=== PATIENT | male | born 1950 | race Caucasian/White ===

== ENCOUNTER 2016-07-17 08:33 | Outpatient (CLI) | payer MEDICARE, OTHER | END 2016-07-17 08:34 | disposition home or self-care (01) | DX: D64.9 Anemia, unspecified (principal); E11.9 Type 2 diabetes mellitus without complications; Z79.899 Other long term (current) drug therapy ==

== ENCOUNTER 2017-01-03 08:30 | Outpatient (CLI) | payer MEDICARE ==
[2017-01-03 14:23] LABS: BASOPHILS # (AUTO) 0.1 10^3/uL (0.0-0.1); BASOPHILS % (AUTO) 0.8 %; EOSINOPHILS # (AUTO) 1.1 10^3/uL (0.0-0.7); EOSINOPHILS % (AUTO) 9.3 %; HCT - HEMATOCRIT 34.2 % (42.0-52.0); HGB - HEMOGLOBIN 11.1 g/dL (14.0-18.0); IMMATURE RETIC FRACTION 0.56; LYMPHOCYTES # (AUTO) 3.1 10^3/uL (1.5-3.5); LYMPHOCYTES % (AUTO) 26.9 %; MEAN CORPUSCULAR HEMOGLOBIN 29.7 pg (27.0-31.0); MEAN CORPUSCULAR HGB CONC 32.5 g/dL (32.0-36.0); MEAN CORPUSCULAR VOLUME 91.3 fL (80.0-94.0); MEAN PLATELET VOLUME 8.6 fL (7.4-11.4); MONOCYTES # (AUTO) 0.9 10^3/uL (0.0-1.0); MONOCYTES % (AUTO) 7.6 %; NEUTROPHILS # (AUTO) 6.4 10^3/uL (1.5-6.6); NEUTROPHILS % (AUTO) 55.4 %; RED BLOOD COUNT 3.75 10^6/uL (4.70-6.10); RED CELL DISTRIBUTION WIDTH 17.3 % (12.0-15.0); UNCORRECTED WHITE BLOOD COUNT 11.7 x10^3/uL; WHITE BLOOD COUNT 11.7 x10^3/uL (4.8-10.8)
[2017-01-03 14:38] LABS: ALBUMIN/GLOBULIN RATIO 0.9 (1.0-2.2); BILIRUBIN,TOTAL 0.4 mg/dL (0.2-1.0); BUN - BLOOD UREA NITROGEN 36 mg/dL (6-20); CALCIUM 9.6 mg/dL (8.5-10.3); CARBON DIOXIDE - CO2 29 mmol/L (21-32); CHLORIDE 102 mmol/L (101-111); CHOL/HDL RATIO 3.6 (<5.0); CHOLESTEROL 105 mg/dL; GFR - MDRD 75 (>89); GLUCOSE 127 mg/dL (70-100); HDL CHOLESTEROL 29 mg/dL; LDL/HDL RATIO 0.7 (<3.6); POTASSIUM 4.4 mmol/L (3.5-5.0); SODIUM 140 mmol/L (135-145); TOTAL PROTEIN 7.6 g/dL (6.7-8.2); TRIGLYCERIDES 275 mg/dL; VLDL CHOLESTEROL 55 mg/dL
[2017-01-03 14:49] LABS: HEMOGLOBIN A1C 1.02 g/dL
[2017-01-03 14:57] LABS: FERRITIN 52.1 ng/mL (23.9-336.2)
[2017-01-03 15:09] LABS: THYROID STIMULATING HORMONE 2.39 uIU/mL (0.34-5.60)
== END 2017-01-03 08:31 | disposition home or self-care (01) ==
LOC: LAB.R 08:30
PROVIDERS: ATTEND Internal Medicine
DX: D64.9 Anemia, unspecified (principal); I25.10 Atherosclerotic heart disease of native coronary artery without angina pectoris; E10.9 Type 1 diabetes mellitus without complications; Z79.899 Other long term (current) drug therapy
CPT/HCPCS: 36415; 80053; 80061; 82607; 82728; 83010; 83036; 84443; 85025; 85044; 86880

== ENCOUNTER 2018-04-30 11:17 | Outpatient (CLI) | payer MEDICARE ==
[2018-04-30 12:15] LABS: BASOPHILS # (AUTO) 0.1 10^3/uL (0.0-0.1); BASOPHILS % (AUTO) 0.8 %; EOSINOPHILS # (AUTO) 0.3 10^3/uL (0.0-0.7); EOSINOPHILS % (AUTO) 2.7 %; LYMPHOCYTES % (AUTO) 17.7 %; MEAN CORPUSCULAR HEMOGLOBIN 30.5 pg (27.0-31.0); MEAN CORPUSCULAR HGB CONC 32.8 g/dL (32.0-36.0); MEAN CORPUSCULAR VOLUME 92.9 fL (80.0-94.0); MONOCYTES # (AUTO) 0.9 10^3/uL (0.0-1.0); MONOCYTES % (AUTO) 7.6 %; NEUTROPHILS # (AUTO) 8.2 10^3/uL (1.5-6.6); NEUTROPHILS % (AUTO) 71.2 %; PLT - PLATELET COUNT 252 10^3/uL (130-450); RED BLOOD COUNT 3.62 10^6/uL (4.70-6.10); RED CELL DISTRIBUTION WIDTH 18.2 % (12.0-15.0); WHITE BLOOD COUNT 11.5 x10^3/uL (4.8-10.8)
[2018-04-30 12:21] LABS: ALBUMIN 3.4 g/dL (3.2-5.5); ALBUMIN/GLOBULIN RATIO 0.9 (1.0-2.2); BILIRUBIN,TOTAL 0.6 mg/dL (0.2-1.0); CALCIUM 9.2 mg/dL (8.5-10.3); CREATININE 0.9 mg/dL (0.6-1.2)
[2018-04-30 12:33] LABS: HB2 TOTAL 11.5 g/dL; HEMOGLOBIN A1C 0.62 g/dL; HEMOGLOBIN A1C % 7.1 % (4.6-6.2)
--- NOTE | 2018-04-30 13:07 | XRAY Report ---
Reason: CHF Procedure Date: 04/30/2018 Accession Number: [id number] / [id number] Procedure: XR - Chest 2 View X-Ray CPT Code: 46249 FULL RESULT: EXAM: CHEST RADIOGRAPHY EXAM DATE: 04/30/2018 12:38 PM. CLINICAL HISTORY: The patient also states history of hemoptysis. COMPARISON: 08/07/2014 10:47 AM. TECHNIQUE: 2 views. FINDINGS: The examination is limited by motion on the lateral radiograph and underpenetration due to patient body habitus. Lungs/Pleura: Interval increase in coarse and nodular pulmonary markings with Kymberly B lines. This is likely a combination of vascular congestion and pulmonary edema. Underlying nodules are difficult to exclude. Blunting of costophrenic angles also noted, possibly small pleural effusions. No pneumothorax. Mediastinum: Cardiomegaly is redemonstrated. Surgical clips are seen over the superior left mediastinum. Other: None. IMPRESSION: Cardiomegaly with likely interval development of vascular congestion and pulmonary edema. If this is discordant with the physical examination, recommend chest CT to clarify. RADIA
== END 2018-04-30 11:18 | disposition home or self-care (01) ==
LOC: LAB 11:17 → DI 11:18
PROVIDERS: ATTEND Internal Medicine
DX: I50.9 Heart failure, unspecified (principal); E10.8 Type 1 diabetes mellitus with unspecified complications
CPT/HCPCS: 36415; 71046; 80053; 83036; 83880; 85025

== ENCOUNTER 2018-06-16 09:00 | Outpatient (CLI) | payer MEDICARE ==
[2018-06-16 10:12] LABS: CALCIUM 9.2 mg/dL (8.5-10.3); CREATININE 1.3 mg/dL (0.6-1.2)
== END 2018-06-16 09:01 | disposition home or self-care (01) ==
LOC: LAB 09:00
PROVIDERS: ATTEND Internal Medicine
DX: I50.9 Heart failure, unspecified (principal)
CPT/HCPCS: 36415; 80048; 83880

== ENCOUNTER 2018-09-17 14:30 | Outpatient (CLI) | payer MEDICARE ==
[2018-09-17 14:54] LABS: CALCIUM 9.5 mg/dL (8.5-10.3); CREATININE 1.2 mg/dL (0.6-1.2)
== END 2018-09-17 14:31 | disposition home or self-care (01) ==
LOC: LAB 14:30
PROVIDERS: ATTEND Family Medicine
DX: I11.0 Hypertensive heart disease with heart failure (principal); I50.9 Heart failure, unspecified; E10.9 Type 1 diabetes mellitus without complications
CPT/HCPCS: 36415; 80048

== ENCOUNTER 2019-02-16 10:51 | Outpatient (CLI) | payer MEDICARE ==
[2019-02-16 11:35] LABS: CALCIUM 9.9 mg/dL (8.5-10.3); CREATININE 1.4 mg/dL (0.6-1.2)
== END 2019-02-16 10:52 | disposition home or self-care (01) ==
LOC: LAB 10:51
PROVIDERS: ATTEND Nurse Practitioner
DX: Z51.81 Encounter for therapeutic drug level monitoring (principal); Z79.899 Other long term (current) drug therapy
CPT/HCPCS: 36415; 80048

== ENCOUNTER 2019-02-22 10:42 | Outpatient (CLI) | payer MEDICARE ==
[2019-02-22 11:20] LABS: CALCIUM 9.6 mg/dL (8.5-10.3); CREATININE 1.4 mg/dL (0.6-1.2)
== END 2019-02-22 10:43 | disposition home or self-care (01) ==
LOC: LAB 10:42
PROVIDERS: ATTEND Family Medicine
DX: I11.0 Hypertensive heart disease with heart failure (principal); I50.9 Heart failure, unspecified; E10.8 Type 1 diabetes mellitus with unspecified complications
CPT/HCPCS: 36415; 80048

== ENCOUNTER 2019-06-22 08:28 | Outpatient (CLI) | payer MEDICARE ==
[2019-06-22 09:00] LABS: BASOPHILS # (AUTO) 0.1 10^3/uL (0.0-0.1); BASOPHILS % (AUTO) 0.7 %; EOSINOPHILS # (AUTO) 0.8 10^3/uL (0.0-0.7); EOSINOPHILS % (AUTO) 6.5 %; HGB - HEMOGLOBIN 11.6 g/dL (14.0-18.0); LYMPHOCYTES # (AUTO) 2.9 10^3/uL (1.5-3.5); LYMPHOCYTES % (AUTO) 24.8 %; MEAN CORPUSCULAR HEMOGLOBIN 30.7 pg (27.0-31.0); MEAN CORPUSCULAR HGB CONC 31.6 g/dL (32.0-36.0); MEAN CORPUSCULAR VOLUME 97.1 fL (80.0-94.0); MEAN PLATELET VOLUME 10.4 fL (7.4-11.4); MONOCYTES % (AUTO) 8.3 %; NEUTROPHILS # (AUTO) 6.8 10^3/uL (1.5-6.6); NEUTROPHILS % (AUTO) 58.8 %; PLT - PLATELET COUNT 267 10^3/uL (130-450); RED BLOOD COUNT 3.78 10^6/uL (4.70-6.10); RED CELL DISTRIBUTION WIDTH 16.1 % (12.0-15.0); WHITE BLOOD COUNT 11.5 x10^3/uL (4.8-10.8)
[2019-06-22 09:05] LABS: ALBUMIN 3.6 g/dL (3.2-5.5); ALBUMIN/GLOBULIN RATIO 0.9 (1.0-2.2); BILIRUBIN,TOTAL 0.5 mg/dL (0.2-1.0); CALCIUM 9.8 mg/dL (8.5-10.3); CREATININE 1.3 mg/dL (0.6-1.2); MAGNESIUM 1.5 mg/dL (1.7-2.8); TOTAL PROTEIN 7.4 g/dL (6.7-8.2); URIC ACID 6.8 mg/dL (2.6-7.2)
[2019-06-22 09:18] LABS: HB2 TOTAL 11.9 g/dL; HEMOGLOBIN A1C 0.91 g/dL; HEMOGLOBIN A1C % 9.1 % (4.6-6.2)
[2019-06-22 10:14] LABS: THYROID STIMULATING HORMONE 6.48 uIU/mL (0.34-5.60)
[2019-06-22 10:15] LABS: FREE T4 (FREE THYROXINE) 1.04 ng/dL (0.58-1.64)
== END 2019-06-22 08:29 | disposition home or self-care (01) ==
LOC: LAB 08:28
PROVIDERS: ATTEND Family Medicine
DX: I50.9 Heart failure, unspecified (principal); F32.9 Major depressive disorder, single episode, unspecified; E78.5 Hyperlipidemia, unspecified; E03.9 Hypothyroidism, unspecified; E66.01 Morbid (severe) obesity due to excess calories; G47.33 Obstructive sleep apnea (adult) (pediatric); I25.10 Atherosclerotic heart disease of native coronary artery without angina pectoris; E10.8 Type 1 diabetes mellitus with unspecified complications
CPT/HCPCS: 36415; 80053; 83036; 83735; 84439; 84443; 84481; 84550; 85025

== ENCOUNTER 2019-07-27 13:02 | Outpatient (CLI) | payer MEDICARE ==
--- NOTE | 2019-07-27 18:29 | SLEEP CARE CONSULTATION ---
Information from patient questionnaire entered by Frances Fu. I have reviewed and concur with the information entered by Frances Fu. This document represents the service I personally performed and the decisions made by me, Dena Smith MD, [facility]. History of Present Illness Reason for Visit: New patient, Previously diagnosed sleep apnea, sleep apnea on CPAP therapy Chief Complaint: reports: Frequent awakenings at night Duration of Symptoms: years Usual bedtime: 4271-0503 Time it takes to fall asleep: 30 minutes Snores at night: Yes Observed to quit breathing while asleep: No Sleeps alone due to snoring: No Number of times waking at night: 2-3 Reasons for waking at night: reports: Snoring, Bathroom Toss, Turn, or Twitch while sleeping: Yes Recalls having dreams: Yes Usually gets out of bed at: [id number] Feels refreshed in the morning: No Morning headache: No Sleepy or fatigued during the day: Yes Ever fallen asleep while driving: No Takes day naps: Yes Dreams during day naps: No Prior sleep studies: Yes Additional HPI information: I had the pleasure of seeing Mr. Diaz today regarding obstructive sleep apnea-hypopnea. As you know, he is a 69-year-old gentleman who was diagnosed with the sleep-disordered breathing in [place] over 20 years ago. He also had a study or two in [place] in the early 1999s. The results are not available. He was prescribed a CPAP device set at 17 cmH2O. He uses every night and all night. The compliance data show usage in 180 out of the past 180 nights, averaging 13.2 hours a night. The residual AHI is 0.4 and average time in large leak per day is 39 minutes. He wears a nasal mask. He gets his supplies from [email or web address]. He finds the treatment very beneficial and can hardly sleep without the CPAP. He still snores, according to his . CPAP Compliance Data - Data Reviewed with Patient Average duration of nightly device use: 13h 11m Compliance rate %: 99.4 Current pressure setting (cmH2O): 17 Humidity settin Average residual AHI: 0.4 Average large leak: 39m 28s Subjective Initial [place] Sleepiness Scale score: 2 Past Medical History Past Medical History: reports: Hypertension, Diabetes, Coronary Heart Disease, Insulin resistance, Gout, Hypothyroidism, Anemia, Depression, Other (diverticulitis, mediastenitis, and s/p tonsillectomy) Social History The patient's occupation is retired. Patient is and lives in [place]. Have you smoked in the past 12 months: No Alcohol use: No Caffeine use: Yes Caffeine amount and frequency: coffee Family History Family history of sleep disordered breathing: No Allergies and Home Medications Drug allergies reviewed: Yes Home medication list reviewed: Yes Allergy and home medication list: Meds: Lipitor, clopidogrel, carvedilol, metformin, allopurinol, levothyroxine, lisinopril, torsemide, insulin, and liothyronine Allergies: no known drug allergies Review of Systems Weight gain over past 5 years: 40 Cardiovascular: reports: high blood pressure, leg or foot swelling Respiratory: reports: shortness of breath Gastrointestinal: denies: heartburn, difficulty swallowing, nausea, vomitting, diarrhea, abdominal pain, other Urinary: denies: incontinence, frequency, urgency, impotence, other Neurological: denies: headaches, seizure, head trauma, disorientation, speech dysfunction, gait or balance problems, fainting or unconsciousness, other Psychiatric: denies: Attention Deficit Hyperactivity, anxiety, depression, mood disorder, claustrophobia, other Ear/Nose/Throat: reports: nose bleeds Endocrine: reports: sluggishness, too hot or cold Musculoskeletal: denies: joint pain, neck pain, back pain, joint swelling, muscle pain or cramping, mobility problems, other Immunologic: denies: sneezing, rash, itching, allergies to food or environment, other Physical Exam Height: 5 ft 11 in Weight: 331 lb (Physical exam was deffered due to the Coronavirus epidemic) Body Mass Index: 46.1 BMI Classification: Morbidly Obese Impression and Plan IMPRESSION: 1. Obstructive Sleep Apnea-Hypopnea Syndrome, as previously diagnosed but the severity is unknown. He has good CPAP compliance. The current pressure setting appears effective and comfortable. Narrow oropharynx and obesity are common predisposing factors for obstructive sleep apnea-hypopnea syndrome. Because it has been nearly two decades since his last sleep study, I will order a manual CPAP/BiPAP titration study to reassess his pressure requirement. Plan: 1. Schedule a manual CPAP/BiPAP titration study to start at 10 cmH2O. 2. Try newer masks. 3. Try lose weight. 4. Return for follow up after the sleep study. I will order him a new machine at that time. I spent 100% of this visit face to face with the patient with greater than 50% of this was spent time counseling the patient and coordination of care.
== END 2019-07-27 13:03 | disposition home or self-care (01) ==
LOC: SC 13:02
PROVIDERS: ATTEND Internal Medicine Pulmonary Disease
DX: G47.33 Obstructive sleep apnea (adult) (pediatric) (principal); E66.01 Morbid (severe) obesity due to excess calories; Z68.42 Body mass index [BMI] 45.0-49.9, adult
CPT/HCPCS: 99203; G0463; 99212

== ENCOUNTER 2019-11-05 09:25 | Outpatient (CLI) | payer MEDICARE ==
[2019-11-05 10:07] LABS: CALCIUM 9.1 mg/dL (8.5-10.3); CREATININE 1.5 mg/dL (0.6-1.2)
[2019-11-05 10:27] LABS: THYROID STIMULATING HORMONE 3.35 uIU/mL (0.34-5.60)
[2019-11-05 10:28] LABS: FREE T3 2.63 pg/mL (2.5-3.9)
[2019-11-05 10:29] LABS: FREE T4 (FREE THYROXINE) 1.03 ng/dL (0.58-1.64)
[2019-11-05 10:35] LABS: HB2 TOTAL 11.8 g/dL; HEMOGLOBIN A1C 0.82 g/dL; HEMOGLOBIN A1C % 8.5 % (4.6-6.2)
== END 2019-11-05 09:26 | disposition home or self-care (01) ==
LOC: LAB 09:25
PROVIDERS: ATTEND Family Medicine
DX: E11.65 Type 2 diabetes mellitus with hyperglycemia (principal); E03.9 Hypothyroidism, unspecified
CPT/HCPCS: 36415; 80048; 83036; 84439; 84443; 84481

== ENCOUNTER 2021-05-08 09:05 | Outpatient (CLI) | payer MEDICARE ==
[2021-05-08 10:00] LABS: BASOPHILS # (AUTO) 0.1 10^3/uL (0.0-0.1); BASOPHILS % (AUTO) 0.5 %; EOSINOPHILS # (AUTO) 0.5 10^3/uL (0.0-0.7); EOSINOPHILS % (AUTO) 3.8 %; HGB - HEMOGLOBIN 11.1 g/dL (14.0-18.0); LYMPHOCYTES # (AUTO) 2.4 10^3/uL (1.5-3.5); MEAN CORPUSCULAR HEMOGLOBIN 30.2 pg (27.0-31.0); MEAN CORPUSCULAR HGB CONC 31.7 g/dL (32.0-36.0); MEAN CORPUSCULAR VOLUME 95.1 fL (80.0-94.0); MEAN PLATELET VOLUME 9.6 fL (7.4-11.4); NEUTROPHILS # (AUTO) 9.5 10^3/uL (1.5-6.6); NEUTROPHILS % (AUTO) 70.1 %; PLT - PLATELET COUNT 226 10^3/uL (130-450); RED BLOOD COUNT 3.68 10^6/uL (4.70-6.10); RED CELL DISTRIBUTION WIDTH 14.8 % (12.0-15.0); WHITE BLOOD COUNT 13.5 x10^3/uL (4.8-10.8)
[2021-05-08 10:11] LABS: CREATININE,URINE 102.5 mg/dL; MICROALBUM/CREATININE RATIO,UR 84.9 ug/mg (<30.0); MICROALBUMIN,URINE 8.7 mg/dL (0-300.0)
[2021-05-08 10:14] LABS: % IRON SATURATION 10 % (20-50); ALBUMIN 3.5 g/dL (3.2-5.5); ALBUMIN/GLOBULIN RATIO 0.9 (1.0-2.2); ALKALINE PHOSPHATASE 53 IU/L (42-121); ALT ALANINE AMINOTRANSFERASE 25 IU/L (10-60); AST ASPARTATE AMINOTRANSFERASE 24 IU/L (10-42); BILIRUBIN,TOTAL 0.7 mg/dL (0.2-1.0); BUN - BLOOD UREA NITROGEN 47 mg/dL (6-20); CALCIUM 9.3 mg/dL (8.5-10.3); CARBON DIOXIDE - CO2 28 mmol/L (21-32); CHLORIDE 99 mmol/L (101-111); CHOLESTEROL 76 mg/dL; CREATININE 1.4 mg/dL (0.6-1.2); GFR - MDRD 50 (>89); GLUCOSE 150 mg/dL (70-100); HDL CHOLESTEROL 25 mg/dL; IRON 35 ug/dL (45-182); LDL CHOLESTEROL,CALCULATED 10 mg/dL; LDL/HDL RATIO 0.4 (<3.6); POTASSIUM 4.8 mmol/L (3.5-5.0); SODIUM 140 mmol/L (135-145); TOTAL IRON BINDING CAPACITY 344 ug/dL (250-450); TOTAL PROTEIN 7.3 g/dL (6.7-8.2); TRANSFERRIN 246 mg/dL (180-329); TRIGLYCERIDES 207 mg/dL; URIC ACID 11.2 mg/dL (2.6-7.2); VLDL CHOLESTEROL 41 mg/dL
[2021-05-08 10:24] LABS: THYROID STIMULATING HORMONE 4.9 uIU/mL (0.34-5.60)
[2021-05-08 10:29] LABS: FERRITIN 92.7 ng/mL (23.9-336.2)
[2021-05-08 12:18] LABS: ESTIMATED AVERAGE GLUCOSE 240 mg/dL (70-100)
== END 2021-05-08 09:06 | disposition home or self-care (01) ==
LOC: LAB 09:05
PROVIDERS: ATTEND Family Medicine
DX: D64.9 Anemia, unspecified (principal); E78.5 Hyperlipidemia, unspecified; E10.8 Type 1 diabetes mellitus with unspecified complications; E03.9 Hypothyroidism, unspecified; M10.9 Gout, unspecified; I11.0 Hypertensive heart disease with heart failure; I50.9 Heart failure, unspecified; F32.A Depression, unspecified; E66.01 Morbid (severe) obesity due to excess calories; G47.33 Obstructive sleep apnea (adult) (pediatric); I25.10 Atherosclerotic heart disease of native coronary artery without angina pectoris; E10.65 Type 1 diabetes mellitus with hyperglycemia
CPT/HCPCS: 36415; 80053; 80061; 82043; 82570; 82728; 83036; 83540; 83721; 83880; 84443; 84466; 84550; 85025

== ENCOUNTER 2021-08-06 10:17 | Outpatient (CLI) | payer MEDICARE ==
[2021-08-06 10:46] LABS: CALCIUM 9.1 mg/dL (8.5-10.3); CREATININE 1.4 mg/dL (0.6-1.2); POTASSIUM 4.7 mmol/L (3.5-5.0)
[2021-08-06 10:51] LABS: CREATININE,URINE 71.6 mg/dL; MICROALBUM/CREATININE RATIO,UR 32.1 ug/mg (<30.0); MICROALBUMIN,URINE 2.3 mg/dL (0-300.0)
[2021-08-06 12:01] LABS: ESTIMATED AVERAGE GLUCOSE 232 mg/dL (70-100); HEMOGLOBIN A1c% 9.7 % (4.27-6.07)
== END 2021-08-06 10:18 | disposition home or self-care (01) ==
LOC: LAB 10:17
PROVIDERS: ATTEND Family Medicine
DX: E11.65 Type 2 diabetes mellitus with hyperglycemia (principal); G47.9 Sleep disorder, unspecified; M10.9 Gout, unspecified; G47.33 Obstructive sleep apnea (adult) (pediatric); I25.10 Atherosclerotic heart disease of native coronary artery without angina pectoris; I11.0 Hypertensive heart disease with heart failure; I50.9 Heart failure, unspecified; E66.01 Morbid (severe) obesity due to excess calories
CPT/HCPCS: 36415; 80048; 82043; 82570; 83036

== ENCOUNTER 2021-08-08 10:43 | Outpatient (CLI) | payer MEDICARE ==
--- NOTE | 2021-08-08 16:27 | XRAY Report ---
PROCEDURE: Sinus Complete INDICATIONS: CHRONIC SINUSITIS TECHNIQUE: 3 views of the sinuses were acquired. COMPARISON: None FINDINGS: Sinuses: The visualized sinuses demonstrate no air-fluid levels or mucosal thickening. The visualiz ed mastoids also appear clear. Bones: No suspicious bony lesions. Nasal septum is midline. IMPRESSION: Negative sinus series. If there is persistent clinical concern for chronic sinus disease, further joey luation with CT of the sinus can be considered. Reviewed by: Rene Dickey MD on 08/08/2021 4:26 PM PDT Approved by: Rene Dickey MD on 08/08/2021 4:26 PM PDT Station ID: [id number]
== END 2021-08-08 10:44 | disposition home or self-care (01) ==
LOC: DI.N 10:43
PROVIDERS: ATTEND Family Medicine
DX: J32.9 Chronic sinusitis, unspecified (principal)

== ENCOUNTER 2021-08-21 15:04 | Outpatient (CLI) | payer MEDICARE ==
[2021-08-21 15:56] VITALS: BP 132/75
--- NOTE | 2021-08-21 15:56 | SLEEP CARE CONSULTATION ---
Information from patient questionnaire entered by Marce Suarez MA. I have reviewed and concur with the information entered by Marce Suarez MA. This document represents the service I personally performed and the decisions made by , Rhina Cadet ARNP. History of Present Illness Service Date and Time: 08/21/2021 1504 Previous diagnosis: Obstructive Sleep Apnea-Hypopnea Syndrome, Other (Unknown severity or AHI) Reason for follow up: annual (LAST SEEN 06/2019, MIKAYLA,) Accompanied by: Spouse Equipment type: CPAP Equipment obtained from: [employer] (getting supplies as needed) Mask style: Nasal (over the nose) Backup mask available: No (needs supplies) Prior sleep studies: Yes HPI additional information: CANDACE JEAN-BAPTISTE was diagnosed to have unknown, AHI unknown, obstructive sleep apnea-hypopnea syndrome and returned today with spouse for CPAP therapy annual follow-up. Sleep Study - Results Prior sleep studies: Yes CPAP Compliance Data - Data Reviewed with Patient Average duration of nightly device use: 13 HOURS 11 MINUTES Compliance rate %: 99.4 Current pressure setting (cmH2O): 17 Average residual AHI: 0.5 Average large leak: 39 MINUTES 29 SECONDS Subjective Patient concerns: reports: air blowing in eyes, nasal congestion, dry mouth, nose, throat, other (HEADACHE). denies: aerophagia, mask discomfort, mask leak noise, condensation in mask/hose, epistaxis Observed to snore while using device: No Current pressure setting perceived as: comfortable On therapy, patient: reports: sleeping better, awakening more refreshed, being more awake and alert during the day, more rested overall. denies: drowsiness while driving Initial [place] Sleepiness Scale score: 2 Current [place] Sleepiness Scale score: 3 (07/2021) Allergies and Home Medications Home medication list reviewed: Yes Allergy and home medication list: Allergies morphine Allergy (Verified 08/07/14 10:31) Unknown Medications: Novolin 70-30 Atorvastatin Clopidogrel Carvedilol Metformin Allopurinol Levothyroxine Lisinopril Torsemide Lithyronine Trazodone Glimepiride magnesium Vitamin C and D Review of Systems Review of systems same as previous: No (eye removed, secondary to diabetes) Physical Exam Vital signs obtained and entered by: Pat SUAREZ CMA AAMI Blood Pressure: 132/75 (RIGHT WRIST, PULSE 97, RESP 20, ) Heart Rate: 97 O2 Saturation: 93 (PAPER ) Height: 5 ft 11 in Weight: 302 lb Body Mass Index: 42.1 BMI Classification: Morbidly Obese Impression and Plan 1. Obstructive Sleep Apnea-Hypopnea Syndrome, unknown, with good treatment compliance and excellent apnea control. On CPAP therapy, the patient has better sleep quality and is more rested overall. Patient has a RemStar Pro made by [employer]. He states it is over 10 years old and he is not sure if it is working right. I informed the patient that [employer] has a recall on several devices like the patients machine. Patient states there was a time when he was having some black discharge from his nose that they thought might be infection but he was seen by an ENT and his sinuses were clear. It is no longer happening. If patient is not able to sleep due to waking up choking, gasping for air or other respiratory distress that they may decide to continue using it until it is either replaced or repaired. Since the patients current machine is at least 5 years old, the patient is opting to update their device with a device that is not on the recall. Patient will need to complete another sleep study to verify his diagnosis and severity since we do not have one on file for him. Once we have this I will order him a new CPAP device. Patient voiced understanding and agreement with plan. Patient's apnea severity and rationale for treatment to reduce apnea, improve sleep quality and reduce cardiovascular and cerebrovascular events was reviewed. I also reviewed the benefit of consistent device use of CPAP for hypertension, diabetes, depression and cardiac disease. 2. Obesity, unspecified. Currently patients BMI is 42.1. Obesity increases the risk of apnea, CPAP pressure requirements and overall health risks especially cardiovascular and diabetes. Thus patient is advised to lose weight. Weight loss can be done with reducing portion size, reducing refined foods and balancing content with vegetables, fruit and whole grain foods. In addition, patient encouraged to get regular exercise. * Continue CPAP pressure at 17.0 cmH2O * PSG to verify diagnosis and severity * Notify me if snoring with mask or feeling that the pressure is too much or too little * Attempt to lose weight * Call this office if any problems using CPAP * Return for follow up after sleep study to go over results, or sooner if concerns arise Counseling Topics: Spare mask, Weight loss health impact Visit Type: In Office Time Spent with Patient (minutes): 24 Provider Statement: I spent 100% of the Face to Face Visit with the patient with greater than 50% spent counseling the patient and coordination of care.
== END 2021-08-21 15:05 | disposition home or self-care (01) ==
LOC: SC 15:04
PROVIDERS: ATTEND Nurse Practitioner Family
DX: G47.33 Obstructive sleep apnea (adult) (pediatric) (principal); E66.01 Morbid (severe) obesity due to excess calories; Z68.41 Body mass index [BMI] 40.0-44.9, adult
CPT/HCPCS: 99213; G0463; 99212

== ENCOUNTER 2021-09-06 09:28 | Outpatient (CLI) | payer MEDICARE | END 2021-09-06 09:29 | disposition home or self-care (01) | LOC: SC 09:28 | PROVIDERS: ATTEND Nurse Practitioner Family | DX: G47.33 Obstructive sleep apnea (adult) (pediatric) (principal); R09.02 Hypoxemia | CPT/HCPCS: G0399 ×2; 95806 ==

== ENCOUNTER 2021-09-13 09:13 | Outpatient (CLI) | payer MEDICARE ==
--- NOTE | 2021-09-13 09:47 | SLEEP CARE CONSULTATION ---
Information from patient questionnaire entered by Marce Suarez MA. I have reviewed and concur with the information entered by Marce Suarez MA. This document represents the service I personally performed and the decisions made by , Rhina Cadet ARNP. History of Present Illness Service Date and Time: 09/13/2021 0913 Accompanied by: Spouse Initial [place] Sleepiness Scale score: 2 Current [place] Sleepiness Scale score: 2 (08/2021) Additional HPI information: CANDACE JEAN-BAPTISTE returns for follow up and results of the recently performed home sleep study. The patient is currently on a nasal CPAP set at 17 cmH20. He comes back in to find out results of home sleep study to verify his diagnosis so we can update his CPAP machine. Sleep Study - Results Type of Sleep Study: Home sleep study (F/U T, 09/06/21 [facility],) Prior sleep studies: Yes Polysomnography/Home Sleep Study results: Physician Impression: The quality of the study is good. The length of the study is adequate (> 240 minutes). Please also see the tabulated and graphic data. 1. Obstructive Sleep Apnea-Hypopnea (ICD-10 G47.33), severe, with an AHI of 41.9/hr and yasmin SaO2 of 85%. During the study, the patient had 108 apneas (108 obstructive, 0 central, 0 mixed) and 152 hypopneas. The longest episode lasted 93.0 seconds. The patient did not sleep supine during this study (supine AHI was 0; and non-supine, 41.88). 2. Hypoxemia (ICD-10 R09.02), mild, with the lowest oxygen saturation of 85 % and 4.9 minutes with SaO2 under 90%. Baseline oxygen saturation was normal (Average oxygen saturation was 95%). Allergies and Home Medications Known drug allergies: No Drug allergies reviewed: Yes Home medication list reviewed: Yes Allergy and home medication list: Allergies morphine Allergy (Verified 08/07/14 10:31) Unknown Physical Exam Vital signs obtained and entered by: ANSON RO Blood Pressure: 130/82 (RESP 20, PULSE 76, LEFT, ) Cuff size: wrist Heart Rate: 73 O2 Saturation: 94 (WITH PAPER MASK) Height: 5 ft 11 in Weight: 300 lb (WITH CLOTHES, ) Weight change since last visit: WANTS AND TRYING TO LOSE WEIGHT. Body Mass Index: 41.8 BMI Classification: Morbidly Obese Impression and Plan 1. Obstructive Sleep Apnea-Hypopnea Syndrome, severe, with lowest oxygen saturation of 85%. Obviously this is the cause of the patients symptoms of unrefreshed sleep, and excessive daytime sleepiness. Positive pressure therapy could benefit hypertension, diabetes, depression and cardiac disease. The patient is currently on a CPAP. He will be continued on nasal autoCPAP therapy with pressure set at 17 cmH2O. The patients CPAP is over 5 years old and of reasonable use. Thus, the CPAP will be updated. The new CPAPs also have a better humidity system which could assist control of patients dryness symptoms. A DWO prescription will be made. Compliance guidelines for new device and follow up discussed. He state current mask he is using goes over the nose but the headgear is different from one he used to use and it doesn't get as snug on his head. I showed him a [employer] 2 mask and he stated he thinks that is close to the one he used to use and would like to try it. I will add this to his prescription. He was encouraged to try to lose weight. 2. Hypoxemia, mild, with the lowest oxygen saturation of 85 % and 4.9 minutes with SaO2 under 90%. His baseline oxygen saturation was normal with an average oxygen saturation of 95%. * Continue Nasal CPAP therapy, pressure at 17 cm H2O. * Update CPAP machine * Try [employer] 2 nasal mask * Update supplies as needed * Attempt to lose weight. * Avoid alcohol consumption near bedtime. * Avoid supine sleep until using CPAP. * The patient is again cautioned about driving until sleepiness completely resolves. * Return one month after new CPAP obtained. I will assess response to therapy and compliance at that time. Counseling Topics: Weight loss health impact Visit Type: In Office Other Participants: Spouse/Significant Other Time Spent with Patient (minutes): 23 Provider Statement: I spent 100% of the Face to Face Visit with the patient with greater than 50% spent counseling the patient and coordination of care.
[2021-09-13 09:48] VITALS: BP 130/82
== END 2021-09-13 09:14 | disposition home or self-care (01) ==
LOC: SC 09:13
PROVIDERS: ATTEND Nurse Practitioner Family
DX: G47.33 Obstructive sleep apnea (adult) (pediatric) (principal); E66.01 Morbid (severe) obesity due to excess calories; Z68.41 Body mass index [BMI] 40.0-44.9, adult
CPT/HCPCS: 99213; G0463; 99212

== ENCOUNTER 2021-11-05 09:18 | Outpatient (CLI) | payer MEDICARE ==
[2021-11-05 09:43] LABS: BASOPHILS # (AUTO) 0.1 10^3/uL (0.0-0.1); BASOPHILS % (AUTO) 0.3 %; EOSINOPHILS # (AUTO) 0.5 10^3/uL (0.0-0.7); EOSINOPHILS % (AUTO) 3.4 %; HGB - HEMOGLOBIN 11.5 g/dL (14.0-18.0); LYMPHOCYTES # (AUTO) 2.6 10^3/uL (1.5-3.5); LYMPHOCYTES % (AUTO) 17.8 %; MEAN CORPUSCULAR HGB CONC 31.1 g/dL (32.0-36.0); MEAN CORPUSCULAR VOLUME 96.6 fL (80.0-94.0); MEAN PLATELET VOLUME 9.3 fL (7.4-11.4); MONOCYTES # (AUTO) 1.1 10^3/uL (0.0-1.0); MONOCYTES % (AUTO) 7.6 %; NEUTROPHILS # (AUTO) 10.2 10^3/uL (1.5-6.6); NEUTROPHILS % (AUTO) 70.2 %; PLT - PLATELET COUNT 278 10^3/uL (130-450); RED BLOOD COUNT 3.83 10^6/uL (4.70-6.10); RED CELL DISTRIBUTION WIDTH 15.9 % (12.0-15.0); WHITE BLOOD COUNT 14.5 x10^3/uL (4.8-10.8)
[2021-11-05 09:56] LABS: ALBUMIN 3.6 g/dL (3.2-5.5); ALBUMIN/GLOBULIN RATIO 0.9 (1.0-2.2); BILIRUBIN,TOTAL 0.4 mg/dL (0.2-1.0); CALCIUM 9.3 mg/dL (8.5-10.3); CREATININE 1.5 mg/dL (0.6-1.2); POTASSIUM 4.3 mmol/L (3.5-5.0); TOTAL PROTEIN 7.8 g/dL (6.7-8.2); URIC ACID 6.7 mg/dL (2.6-7.2)
[2021-11-05 10:15] LABS: FREE T3 2.75 pg/mL (2.5-3.9)
[2021-11-05 10:16] LABS: THYROID STIMULATING HORMONE 0.63 uIU/mL (0.34-5.60)
[2021-11-05 10:17] LABS: FREE T4 (FREE THYROXINE) 1.07 ng/dL (0.58-1.64)
[2021-11-05 10:25] LABS: ESTIMATED AVERAGE GLUCOSE 183 mg/dL (70-100)
== END 2021-11-05 09:19 | disposition home or self-care (01) ==
LOC: LAB 09:18
PROVIDERS: ATTEND Family Medicine
DX: I42.9 Cardiomyopathy, unspecified (principal); E11.65 Type 2 diabetes mellitus with hyperglycemia; I50.9 Heart failure, unspecified; M10.9 Gout, unspecified; E03.9 Hypothyroidism, unspecified; E66.01 Morbid (severe) obesity due to excess calories; G47.33 Obstructive sleep apnea (adult) (pediatric)
CPT/HCPCS: 36415; 80053; 83036; 83880; 84439; 84443; 84481; 84550; 85025

== ENCOUNTER 2023-05-22 13:10 | Emergency (ER) | payer MEDICARE ==
[2023-05-22 13:55] LABS: BASOPHILS # (AUTO) 0.1 10^3/uL (0.0-0.1); BASOPHILS % (AUTO) 0.7 %; EOSINOPHILS # (AUTO) 0.8 10^3/uL (0.0-0.7); LYMPHOCYTES # (AUTO) 1.8 10^3/uL (1.5-3.5); LYMPHOCYTES % (AUTO) 16.5 %; MEAN CORPUSCULAR HEMOGLOBIN 29.5 pg (27.0-31.0); MEAN CORPUSCULAR HGB CONC 31.7 g/dL (32.0-36.0); MEAN PLATELET VOLUME 9.7 fL (7.4-11.4); MONOCYTES # (AUTO) 0.9 10^3/uL (0.0-1.0); MONOCYTES % (AUTO) 8.5 %; NEUTROPHILS # (AUTO) 7.2 10^3/uL (1.5-6.6); NEUTROPHILS % (AUTO) 66.9 %; PLT - PLATELET COUNT 309 10^3/uL (130-450); RED BLOOD COUNT 4.41 10^6/uL (4.70-6.10); RED CELL DISTRIBUTION WIDTH 14.2 % (12.0-15.0); WHITE BLOOD COUNT 10.8 x10^3/uL (4.8-10.8)
[2023-05-22 14:08] LABS: ALBUMIN/GLOBULIN RATIO 1.1 (1.0-2.2); BILIRUBIN,TOTAL 0.4 mg/dL (0.2-1.0); CALCIUM 9.8 mg/dL (8.5-10.3); CREATININE 1.5 mg/dL (0.6-1.3); POTASSIUM 4.8 mmol/L (3.5-4.5); TOTAL PROTEIN 7.5 g/dL (6.4-8.9)
[2023-05-22 14:28] LABS: TROPONIN I HIGH SENSITIVITY 35.5 ng/L (2.3-19.7)
--- NOTE | 2023-05-22 14:47 | XRAY Report ---
PROCEDURE: Chest 1V INDICATIONS: chest pain TECHNIQUE: One view of the chest was acquired. COMPARISON: 04/30/2018, 08/07/2014 FINDINGS: Surgical changes and devices: None. Lungs and pleura: Extensive bilateral pulmonary density is somewhat progressed compared to 04/30/2018 , most likely representing pulmonary edema. Alternatively, it can represent chronic interstitial pulm onary fibrosis. Mediastinum: Mediastinal contours appear normal. Heart size is normal. Bones and chest wall: No suspicious bony lesions. Overlying soft tissues appear unremarkable. IMPRESSION: Findings likely represent a congestive heart failure exacerbation. However, cannot exclude progressiv e chronic interstitial pulmonary fibrosis. Reviewed by: Bigg Torres MD on 05/22/2023 2:46 PM PST Approved by: Bigg Torres MD on 05/22/2023 2:46 PM PST Station ID: [id number]
[2023-05-22] MEDS ORDERED: FUROSEMIDE 40 MG/4 ML VIAL IVP STA (16:11)
--- NOTE | 2023-05-22 17:16 | ED Physician Documentation ---
PD HPI DYSPNEA - Stated complaint Stated Complaint: SOA,SENT BY [facility] - Chief complaint Chief Complaint: Resp - History obtained from History obtained from: Patient, Family - Additional information Additional information: This is a 73-year-old male with a past medical history of CHF, prior CAD, type 2 diabetes. He is on palliative care at home and a palliative care nurse visited him today and his found that his oxygen saturation was 88% and they had short shortness of breath with exertion thus he was sent to the ER. Patient states that he has no shortness of breath at rest but has had shortness of breath with exertion for quite a while though seem to be worsening recently. He reports compliance with his medication Including his torsemide. He has not noted any weight gain, no new lower extremity edema, and no cough or fever. He denies any chest pain. He does have some right mid back pain which has been present for several weeks or longer denies any acute change in this, no acute back injuries, and he states he has been taking either Tylenol or ibuprofen for this issue. He is not interested in hospitalization or aggressive interventions, and his goal is to go home and remain home if at all possible. He is not interested in home oxygen at this time. Review of Systems Constitutional: reports: Reviewed and negative Eyes: reports: Reviewed and negative Ears: reports: Reviewed and negative Nose: reports: Reviewed and negative Throat: reports: Reviewed and negative Cardiac: reports: Reviewed and negative Respiratory: reports: Dyspnea, Cough. denies: Hemoptysis, Wheezing GI: reports: Reviewed and negative : reports: Reviewed and negative Skin: reports: Reviewed and negative Musculoskeletal: reports: Reviewed and negative Neurologic: reports: Reviewed and negative Psychiatric: reports: Reviewed and negative Endocrine: reports: Reviewed and negative PD PAST MEDICAL HISTORY - Past Medical History Past Medical History: Yes Cardiovascular: Hypertension, High cholesterol, Coronary artery disease Endocrine/Autoimmune: Type 2 diabetes - Past Surgical History Cardiovascular: CABG - Present Medications Home Medications: Ambulatory Orders Medication Instructions Recorded Confirmed Atorvastatin [Lipitor] 40 mg PO DAILY 08/07/14 08/07/14 Insulin Lispro [Humalog] 100 unit SQ 08/07/14 08/07/14 Insulin NPH Human Isophane 08/07/14 08/07/14 [Humulin N] Levothyroxine [Synthroid] 125 mcg PO QDAC 08/07/14 08/07/14 Lisinopril 20 mg PO DAILY 08/07/14 08/07/14 Metformin HCl [Metformin HCl ER] 1,000 mg PO BID 08/07/14 08/07/14 traZODone [Desyrel] 150 mg PO HS 08/07/14 08/07/14 Torsemide 20 mg PO DAILY #30 tablet 05/22/23 - Allergies Allergies/Adverse Reactions: Allergies Allergy/AdvReac Type Severity Reaction Status Date / Time morphine Allergy Unknown Verified 05/22/23 13:23 - Social History Does the pt smoke?: No Smoking Status: Never smoker Does the pt drink ETOH?: No Does the pt have substance abuse?: No PD ED PE NORMAL - Vitals Vital signs reviewed: Yes - General General: Alert and oriented X 3, No acute distress, Other (Appears chronically ill but nontoxic.) - HEENT HEENT: Atraumatic, Moist mucous membranes, Pharynx benign - Neck Neck: Supple, no meningeal sign, No JVD - Cardiac Cardiac: RRR, No murmur, No gallop, No rub, Strong equal pulses - Respiratory Respiratory: No respiratory distress, Other (There are scattered rhonchi bila terally, no wheezing.) - Abdomen Abdomen: Normal bowel sounds, Soft, Non tender, Non distended, Other (Obese, soft abdomen) - Back Back: No CVA TTP, No spinal TTP, Other (There is right thoracic paravertebral muscle pain) - Derm Derm: Normal color, Warm and dry, No rash - Extremities Extremities: No deformity, No tenderness to palpate, Normal ROM s pain, No edema, No calf tenderness / cord - Neuro Neuro: Alert and oriented X 3, No motor deficit, No sensory deficit, Normal speech Eye Opening: Spontaneous Motor: Obeys Commands Verbal: Oriented GCS Score: 15 - Psych Psych: Normal mood, Normal affect Results - Vitals Vitals: Vital Signs - 24 hr 05/22/23 05/22/23 05/22/23 13:13 16:23 18:16 Temperature 36.1 C L Heart Rate 72 73 71 Respiratory 18 18 24 Rate Blood Pressure 132/71 H 117/89 H 133/80 H O2 Saturation 98 98 92 Oxygen O2 Source Room air - EKG (time done) No standard instances EKG releavant findings:: EKG personally interpreted by author of this note. Relevant findings are: Rate: Rate (enter#) (76) Rhythm: NSR Intervals: Normal NC QRS: LVH Other comments: Other comments (LVH w/ early repol, no STEMI. Reviewed w/ Dr. Valencia. ) Computer interpretation: Disagree with computer - Labs Labs: Laboratory Tests 05/22/23 05/22/23 05/22/23 13:10 13:46 13:46 WBC 10.8 RBC 4.41 L Hgb 13.0 L Hct 41.0 L MCV 93.0 MCH 29.5 MCHC 31.7 L RDW 14.2 Plt Count 309 MPV 9.7 Neut # (Auto) 7.2 H Lymph # (Auto) 1.8 [place] # (Auto) 0.9 Eos # (Auto) 0.8 H Baso # (Auto) 0.1 Absolute Nucleated RBC 0.00 Nucleated RBC % 0.0 Sodium 134 L Potassium 4.8 H Chloride 99 L Carbon Dioxide 26 Anion Gap 9.0 BUN 80 H* Creatinine 1.5 H Estimated GFR (MDRD) 46 L Glucose 326 H Estimat Average Glucose 194 H Hemoglobin A1c % 8.4 H Calcium 9.8 Total Bilirubin 0.4 AST 10 ALT 11 Alkaline Phosphatase 68 Troponin I High Sens 35.5 H* B-Natriuretic Peptide Total Protein 7.5 Albumin 4.0 Globulin 3.5 Albumin/Globulin Ratio 1.1 Lipase 45 05/22/23 05/22/23 13:46 16:15 WBC RBC Hgb Hct MCV MCH MCHC RDW Plt Count MPV Neut # (Auto) Lymph # (Auto) [place] # (Auto) Eos # (Auto) Baso # (Auto) Absolute Nucleated RBC Nucleated RBC % Sodium Potassium Chloride Carbon Dioxide Anion Gap BUN Creatinine Estimated GFR (MDRD) Glucose Estimat Average Glucose Hemoglobin A1c % Calcium Total Bilirubin AST ALT Alkaline Phosphatase Troponin I High Sens 39.0 H* B-Natriuretic Peptide 346 H Total Protein Albumin Globulin Albumin/Globulin Ratio Lipase - Rads (name of study) No standard instances Relevant Findings:: Final report received PD Medical Decision Making - ED course Complexity details: reviewed old records, reviewed results, re-evaluated patient, considered differential, d/w patient, d/w family, other ED course: Reviewed EKG w/ ED Attending. This is a 73-year-old male who has a history of a CHF and additional medical history as listed above who presented at the request of his palliative care nurse when he was found to be 88% on room air with ambulation. The patient really has no new complaints for me today, he does endorse shortness of breath with exertion though that is not new, he has absolutely no chest pain, he does have some right thoracic back pain noted though that again this is not new. He reports compliance with his medications. On arrival here, the patient is oxygenating well on room air, 95%, and in no acute distress, vital signs are stable. We did obtain a EKG which showed LVH and some early repolarization, there was a small area that was concern for possible ST elevation in V1 and 2 however after reviewing the EKG with Dr. Valencia, it was thought this was secondary to his LVH and early repolarization. The patient is not having any chest pain less I think unlikely to be having a STEMI. We did collect labs however to evaluate for possible ACS, CHF exacerbation, infection, pneumonia, pneumothorax causing his symptoms. I also considered a pulmonary embolus. His labs are significant for a creatinine of 1.5 with a BUN of 80 though this is actually improved from prior values seen in January, sodium 134 potassium 4.8 chloride 99. His BNP is elevated at 346 though this is down slightly from prior, and his high-sensitivity troponin is 35.5 and a repeat is 39. Given the patient is not having any chest pain I suspect these values are chronic elevation from a CHF and CKD. Patient was given a dose of 40 mg IV Lasix here with several episodes of urine output. I discussed with patient that a PE was in the differential but but given his tenuous renal function I did not recommend a CT with contrast at this time. I did offer to anticoagulate the patient until his renal function improved however he did not wish to do so. The patient did not want home oxygen at this time but he can continue this conversation with his PCP to determine if it would be beneficial for him to have home oxygen particularly so that he can participate more in physical activities and physical therapy. Patient had no interest in hospitalization and strongly desired to go home. I am going to increase his torsemide will continue his a.m. dose and at 10 mg in the afternoon. He should follow-up with his PCP within the next week to reevaluate, determine if additional medication adjustments are necessary. He does have metformin and lisinopril listed on his med list and it may be beneficial for him to change these medications to alternatives that do not compromise renal function. I will defer to his PCP on this however. He also was encouraged to see his power plant inspector as soon as possible to follow-up on his CHF. Return precautions reviewed if any new or worsening symptoms. Departure - Departure Disposition: 01 Home, Self Care Clinical Impression: Elevated troponin Congestive heart failure Qualifiers: Heart failure type: unspecified Heart failure chronicity: acute on chronic Qualified Code(s): I50.9 - Heart failure, unspecified Condition: Good Instructions: ED CHF General Prescriptions: Torsemide 20 mg PO DAILY #30 tablet Comments: Please schedule a follow-up with your primary doctor to discuss your medications. Your kidney function is similar to the last lab work I see in January. Typically we would not not keep someone on metformin with your degree of kidney dysfunction but sometimes this is the best option so please discuss with your doctor. As we discussed in the ER, I cannot rule out a blood clot in your lungs causing your symptoms but I think it is more likely due to your congestive heart failure. If you have not had an ultrasound, called an echocardiogram, on your heart recently, your primary doctor may wish to do this. I would also like you to follow-up with your power plant inspector as soon as possible. Please stick to a low-salt diet. We discussed starting you on home oxygen and you may need this for activity though it does not seem that you need it at rest. Your primary doctor can arrange for you to have home oxygen. I strongly urged you to do this if you qualify because this will allow you to participate more in physical activity and physical therapy. If you have worsening symptoms, please return to the ER. Continue your morning torsemide. Add 20mg in the afternoon (try to take around 2-3pm to avoid being up all night urinating). STOP taking ibuprofen (advil) or naproxen (aleve) for pain. Tylenol is ok. Forms: PCP List Discharge Date/Time: 05/22/23 18:40
[2023-05-22] MEDS ORDERED: ACETAMINOPHEN 325 MG TABLET PO STA (17:54)
[2023-05-22] MEDS ORDERED: ONDANSETRON 4 MG/2 ML VIAL IVP STA (17:54)
[2023-05-22 18:20] VITALS: BP 133/80; O2SAT 92
[2023-05-22 21:04] LABS: ESTIMATED AVERAGE GLUCOSE 194 mg/dL (70-100); HEMOGLOBIN A1c% 8.4 % (4.27-6.07)
== END 2023-05-22 18:40 | disposition home or self-care (01) ==
LOC: ED 13:10
DX: I13.0 Hypertensive heart and chronic kidney disease with heart failure and stage 1 through stage 4 chronic kidney disease, or unspecified chronic kidney disease (principal); E11.22 Type 2 diabetes mellitus with diabetic chronic kidney disease; N18.9 Chronic kidney disease, unspecified; R79.89 Other specified abnormal findings of blood chemistry; Z79.84 Long term (current) use of oral hypoglycemic drugs
CPT/HCPCS: 36415; 71045; 80053; 83036; 83690; 83880; 84484; 85025; 93005; 96374; 96375; 99284; A9270; 87086

== ENCOUNTER 2023-08-20 08:00 | Outpatient (CLI) | payer MEDICARE | END 2023-08-20 23:59 | disposition home or self-care (01) | LOC: PC 08:00 | PROVIDERS: ATTEND Nurse Practitioner Gerontology | DX: Z51.5 Encounter for palliative care (principal); I25.5 Ischemic cardiomyopathy; I25.10 Atherosclerotic heart disease of native coronary artery without angina pectoris; E66.01 Morbid (severe) obesity due to excess calories; G47.00 Insomnia, unspecified; I13.0 Hypertensive heart and chronic kidney disease with heart failure and stage 1 through stage 4 chronic kidney disease, or unspecified chronic kidney disease; E11.65 Type 2 diabetes mellitus with hyperglycemia; E11.40 Type 2 diabetes mellitus with diabetic neuropathy, unspecified; E11.22 Type 2 diabetes mellitus with diabetic chronic kidney disease; N18.9 Chronic kidney disease, unspecified; I50.9 Heart failure, unspecified; R63.0 Anorexia; R06.09 Other forms of dyspnea; F32.A Depression, unspecified; Z79.4 Long term (current) use of insulin; Z79.84 Long term (current) use of oral hypoglycemic drugs; Z79.02 Long term (current) use of antithrombotics/antiplatelets; Z79.899 Other long term (current) drug therapy; Z74.1 Need for assistance with personal care; Z72.3 Lack of physical exercise; Z95.1 Presence of aortocoronary bypass graft; Z66 Do not resuscitate | CPT/HCPCS: 99350 ==

== ENCOUNTER 2023-09-23 08:00 | Outpatient (CLI) | payer MEDICARE | END 2023-09-23 23:59 | disposition home or self-care (01) | LOC: PC 08:00 | PROVIDERS: ATTEND Nurse Practitioner Gerontology | DX: Z51.5 Encounter for palliative care (principal); I50.9 Heart failure, unspecified; N18.32 Chronic kidney disease, stage 3b | CPT/HCPCS: 99426 ==

== ENCOUNTER 2023-10-15 08:00 | Outpatient (CLI) | payer MEDICARE | END 2023-10-15 23:59 | disposition home or self-care (01) | LOC: PC 08:00 | PROVIDERS: ATTEND Nurse Practitioner Gerontology | DX: Z51.5 Encounter for palliative care (principal); I25.5 Ischemic cardiomyopathy; I50.42 Chronic combined systolic (congestive) and diastolic (congestive) heart failure; L03.115 Cellulitis of right lower limb; G47.00 Insomnia, unspecified; N18.9 Chronic kidney disease, unspecified; E11.22 Type 2 diabetes mellitus with diabetic chronic kidney disease; E11.42 Type 2 diabetes mellitus with diabetic polyneuropathy; E11.65 Type 2 diabetes mellitus with hyperglycemia; E66.01 Morbid (severe) obesity due to excess calories; F32.A Depression, unspecified; R53.81 Other malaise; Z68.41 Body mass index [BMI] 40.0-44.9, adult; Z79.4 Long term (current) use of insulin; Z79.84 Long term (current) use of oral hypoglycemic drugs; Z79.899 Other long term (current) drug therapy | CPT/HCPCS: 99350 ==

== ENCOUNTER 2023-12-09 08:00 | Outpatient (CLI) | payer MEDICARE | END 2023-12-09 23:59 | disposition home or self-care (01) | LOC: PC 08:00 | PROVIDERS: ATTEND Nurse Practitioner Gerontology | DX: Z51.5 Encounter for palliative care (principal); I25.10 Atherosclerotic heart disease of native coronary artery without angina pectoris; I50.42 Chronic combined systolic (congestive) and diastolic (congestive) heart failure; E66.01 Morbid (severe) obesity due to excess calories; F32.A Depression, unspecified; I42.9 Cardiomyopathy, unspecified; N18.32 Chronic kidney disease, stage 3b; E11.65 Type 2 diabetes mellitus with hyperglycemia; E11.22 Type 2 diabetes mellitus with diabetic chronic kidney disease; R63.0 Anorexia; I95.9 Hypotension, unspecified; Z68.41 Body mass index [BMI] 40.0-44.9, adult; Z71.89 Other specified counseling; Z79.4 Long term (current) use of insulin; Z79.84 Long term (current) use of oral hypoglycemic drugs | CPT/HCPCS: 99350 ==

== ENCOUNTER 2023-12-24 08:00 | Outpatient (CLI) | payer MEDICARE | END 2023-12-24 23:59 | disposition home or self-care (01) | LOC: PC 08:00 | PROVIDERS: ATTEND Nurse Practitioner Gerontology | DX: Z51.5 Encounter for palliative care (principal); I50.9 Heart failure, unspecified; N18.32 Chronic kidney disease, stage 3b | CPT/HCPCS: 99426; 99427 ==